=== PATIENT | female | born 1955 | race Caucasian/White ===

== ENCOUNTER 2017-07-21 09:49 | Day surgery (SDC) | payer MEDICAID ==
[2017-07-19 12:24] LABS: Basophils # (auto) 0 uL; Basophils % (auto) 0.5 % (0.0-2.0); Eosinophils # (auto) 0.1 uL; Eosinophils % (auto) 2.3 % (0.0-7.0); Hematocrit 39.7 % (36.0-46.0); Hemoglobin 13.8 g/dL (12.2-16.2); Lymphocytes # (auto) 1.2 uL; Lymphocytes % (auto) 19.8 % (10.0-50.0); Mean Corpuscular Hemoglobin 30.5 pg (28.0-32.0); Mean Corpuscular Hgb Conc. 34.8 g/dL (32.0-36.0); Mean Corpuscular Volume 87.8 fL (80.0-100.0); Monocytes # (auto) 0.4 uL; Monocytes % (auto) 7.3 % (0.0-12.0); Neutrophils # (auto) 4.1 uL; Neutrophils % (auto) 70.1 % (37.0-80.0); Nucleated Red Blood Cells % 0.1 %; Platelet Count (auto) 254 10^3/uL (140-450); Red Blood Cells 4.52 10^6/uL (4.0-5.20); Red Cell Distribution Width 14.2 % (11.8-14.3); White Blood Cell 5.8 10^3/uL (4.4-10.8)
[2017-07-19 12:25] LABS: Urine Bacteria NONE SEEN /hpf (None Seen); Urine Blood Negative /uL (Negative); Urine Mucus FEW (None Seen); Urine Specific Gravity 1.029 (1.001-1.035); Urine WBC 1 /hpf (0 - 5)
[2017-07-19 12:35] LABS: INR 0.96 (0.9-1.15); Partial Thromboplastin Time 26.4 sec (22.64-33.71); Prothrombin Time 10.5 sec (9.37-12.3)
[2017-07-19 12:53] LABS: Albumin 4.2 g/dL (3.4-5.0); BUN/Creatinine Ratio 31.8; Bilirubin, Total 0.4 mg/dL (0.2-1.0); Calcium 8.5 mg/dL (8.5-10.1); Potassium 3.8 mmol/L (3.5-5.1); Total Protein 8.5 g/dL (6.4-8.2)
[~2017-07-21] VITALS: Ht 170.2 cm; Wt 76.2 kg
[~2017-07-21 09:49] MED LIST: ASPI81CH43; ATO40T PO; DIG0125T PO; FENO5TAB PO; FLUO40CA PO; METF-370 PO; QUET200T3 PO; QUET400T3 PO; SIMV-8; TRAM50TA2 PO
[2017-07-21] MEDS ORDERED: CLINDAMYCIN 600MG IV 50 ML IV ONE (12:36)
[2017-07-21] MEDS ORDERED: NEOMYCIN-BACITRACIN-POLYM 15GM TOP OINT TOP ONE (14:32)
[2017-07-21] MEDS ORDERED: BUPIVACAINE 0.75% INJ 10ML MPV SDV IJ ONE ×2 (14:32)
[2017-07-21] MEDS ORDERED: LIDOCAINE 1% (LOCAL ANESTH.) PF 5ml SDV ONE (14:44)
[2017-07-21] MEDS ORDERED: SUCCINYLCHOLINE CHLORIDE 20 MG/ML 10ML VIAL IV ONE (14:44)
[2017-07-21] MEDS ORDERED: MIDAZOLAM HCL 1MG/1ML-2 ML VIAL ONE ×2 (14:46→14:52)
[2017-07-21] MEDS ORDERED: PROPOFOL 10 MG/ML 20 ML IV ONE (14:47)
[2017-07-21] MEDS ORDERED: KETAMINE HCL 1 ML ONE (14:51)
[2017-07-21] MEDS ORDERED: ROCURONIUM 10MG/ML 10ML VIAL IV ONE (15:07)
[2017-07-21] MEDS ORDERED: fentaNYL CITRATE 100 MCG/2 ML VL ONE (15:08)
[2017-07-21] MEDS ORDERED: NALOXONE HCL 0.4 MG/ML VIAL IV PRN (15:15)
[2017-07-21] MEDS ORDERED: ONDANSETRON HCL 4 MG/2 ML VIAL IV ONE (15:15)
[2017-07-21] MEDS ORDERED: ACCU-CHEK COMFORT CURVE STRIP VI ONE (15:15)
[2017-07-21] MEDS ORDERED: MORPHINE SULFATE 4 MG/ML SYR/VIAL IV PRN (15:15)
[2017-07-21] MEDS ORDERED: MORPHINE SULFATE INJECTION 1 ML ONE (16:21)
[2017-07-21 17:30] VITALS: BP 142/50
== END 2017-07-21 17:20 | disposition home or self-care (01) ==
LOC: SUR 09:49
PROVIDERS: ATTEND Podiatrist Foot & Ankle Surgery
DX: M20.12 Hallux valgus (acquired), left foot (principal); M21.612 Bunion of left foot; M20.42 Other hammer toe(s) (acquired), left foot; Z88.0 Allergy status to penicillin; Z88.1 Allergy status to other antibiotic agents; E66.9 Obesity, unspecified; R56.9 Unspecified convulsions; I20.9 Angina pectoris, unspecified; I50.9 Heart failure, unspecified; E11.9 Type 2 diabetes mellitus without complications; F20.9 Schizophrenia, unspecified; F41.9 Anxiety disorder, unspecified; F32.9 Major depressive disorder, single episode, unspecified
CPT/HCPCS: 36415; 73620; 80053; 81001; 82962; 84132; 85025; 85610; 85730; C1769; J0330; J2250; J2270; J2704; J3490